=== PATIENT | female | born 1980 | race Caucasian/White ===

== ENCOUNTER 2017-01-31 20:28 | Emergency (ER) | payer MEDICAID ==
[~2017-01-31] VITALS: Ht 154.9 cm; Wt 94.0 kg
[~2017-01-31 20:28] MED LIST: ACET-141 PO; ALBU18HF INHALATION; AZIT250T94 PO; IBUP400T22 PO; LORA-441 PO; NO MEDS; PRED20TA PO; PRENATALS; PROM6.25 PO
[2017-01-31 20:37] VITALS: Ht 154.9 cm; Wt 94.0 kg
--- NOTE | 2017-01-31 21:33 | RADRPT ---
PROCEDURE: XR Chest AP portable CLINICAL INDICATION: Cough TECHNIQUE: An AP portable radiograph of the chest was submitted. COMPARISON: 01/06/2016 FINDINGS: Support Hardware: None Cardiovascular: The cardiovascular silhouette appears unremarkable. Lung Tirado: The lung tirado appear clear with no nodule, alveolar infiltrate, or interstitial promi nence evident. Pleural Spaces: No pneumothorax or pleural effusion is identified. Osseous Structures: The osseous structures appear intact. Soft Tissues: The soft tissues appear generous. IMPRESSION: Stable and unremarkable portable chest. Physician Yaakov Date Time Electronically viewed and signed by Monica Easley Physician on 01/31/2017 21:33 RH/
[2017-01-31] MEDS ORDERED: ALBU8.5H3 INH (22:03)
[2017-01-31] MEDS ORDERED: AZIT250T94 PO (22:03)
[2017-01-31] MEDS ORDERED: BENZ100C70 PO (22:03)
[2017-01-31 22:12] VITALS: PULSE 80; RESP 24; TEMP 98.7
--- NOTE | 2017-01-31 22:30 | ERD ---
ER Documentation Chief Complaint Date/Time DATE: 01/31/17 TIME: 22:26 Chief Complaint cough congestion, fever x 3 weeks HPI 36-year-old female patient with no significant past medical history presents to the ED complaining of cough, congestion that started 3 weeks ago with fever that started 2 days ago. Patient reports that her cough is dry. Reports that she has tried taking [id number] Robitussin which has not relieved her symptoms. Denies any sick contacts. Patient reports that she has had a history of bronchitis. Denies any smoking. Denies any abdominal pain, nausea, vomiting, chest pain, shortness of breath, diarrhea. ROS All systems reviewed and are negative except as per history of present illness. Medications Home Meds Active Scripts Albuterol Sulfate* (Proair HFA*) 8.5 Gm Hfa.aer.ad, 2 PUFF INH Q4, #1 INHALER Prov:SELENA MOONEY PA-C 01/31/17 Benzonatate* (Tessalon Perle*) 100 Mg Capsule, 100 MG PO Q8H Y for COUGH, #20 CAP Prov:SELENA MOONEY PA-C 01/31/17 Azithromycin* (Zithromax*) 250 Mg Tablet, 250 MG PO .ZPACK DIRECTED, #6 TAB TAKE 500 MG (2 TABS) THE FIRST DAY THEN 250 MG (1 TAB) DAYS 2-5 Prov:SELENA MOONEY PA-C 01/31/17 Lorazepam* (Ativan*) 0.5 Mg Tablet, 0.5 MG PO Q8, #10 TAB Prov:TY RAMIREZ 01/07/16 Azithromycin* (Zithromax*) 250 Mg Tablet, 250 MG PO .ZPACK DIRECTED, #6 TAB TAKE 500 MG (2 TABS) THE FIRST DAY THEN 250 MG (1 TAB) DAYS 2-5 Prov:YAHIR TSAI PA-C 08/14/15 Prednisone* (Prednisone*) 20 Mg Tab, 40 MG PO DAILY for 4 Days, TAB Prov:YAHIR TSAI PA-C 08/14/15 Promethazine w/Codeine* (Phenergan w/Codeine* Syrup) 5 Ml Syrup, 5 ML PO Q4H Y for COUGH, #100 ML Prov:YAHIR TSAI PA-C 08/10/15 Ibuprofen* (Motrin*) 400 Mg Tab, 400 MG PO Q6H Y for PAIN AND OR ELEVATED TEMP, #30 TAB Prov:YAHIR TSAI PA-C 08/10/15 Acetaminophen* (Acetaminophen*) 500 MG Extra Strength Tablet, 500 MG PO Q4H Y for PAIN AND OR ELEVATED TEMP, #30 TAB Prov:YAHIR TSAI PA-C 08/10/15 Albuterol Sulfate* (Ventolin HFA*) 18 Gm Hfa.aer.ad, 2 PUFF INHALATION Q4H, #1 INHALER Prov:YAHIR TSAI PA-C 08/10/15 Reported Medications [Prenatals] No Conflict Check 05/18/11 [No Meds] No Conflict Check 11/03/10 Allergies Allergies: Coded Allergies: No Known Allergy (Verified , 01/31/17) PMhx/Soc History of Surgery: Yes (c section) Anesthesia Reaction: No Hx Neurological Disorder: No Hx Respiratory Disorders: No Hx Cardiac Disorders: No Hx Psychiatric Problems: No Hx Miscellaneous Medical Probl: No Hx Alcohol Use: No Hx Substance Use: No Hx Tobacco Use: No Smoking Status: Never smoker Physical Exam Vitals Vital Signs Date Time Temp Pulse Resp B/P Pulse Ox O2 Delivery O2 Flow Rate FiO2 01/31/17 22:12 98.7 80 24 98 Room Air 01/31/17 20:37 97.1 64 24 122/78 98 Physical Exam Const: [id number]-[id number], well-nourished. In no acute distress. Head: Atraumatic, normocephalic Eyes: Normal Conjunctiva without injection. No purulent discharge. PERRL. EOMI ENT: Normal external ear. Ear canal without erythema. Tympanic membrane pearly cornell without effusion or bulging. Nasal canal clear with normal turbinates. Moist oropharynx without tonsillar exudates. Non-erythematous pharynx. Uvula midline. No drooling. No trismus. Neck: Full range of motion. No meningismus. No cervical lymphadenopathy. Resp: Clear to auscultation bilaterally. No wheezing, rhonchi, rales, or crackles. No accessory muscle use. No retractions. Cardio: Regular rate and rhythm. No murmurs, rubs or gallops. Abd: Soft, non tender, non distended. Normal bowel sounds. No palpable masses. No rebound tenderness. No guarding. Skin: No petechiae or rashes Back: No midline tenderness. No CVA tenderness. Ext: No cyanosis, or edema. Neur: Awake and alert. Psych: Normal Mood and Affect Procedures/MDM This is a 36-year-old female patient with no significant past medical history presents to the ED complaining of cough, congestion, fever. Patient is afebrile and nontoxic-appearing. Patient has normal vital signs. Since patient symptoms have been going on for the past 3 weeks, a chest x-ray will be ordered to further evaluate patient. Chest x-ray shows no pneumothorax, pleural effusion, pneumonia. Patient likely has bronchitis. Patient's physical exam include lungs which were clear to auscultation and a normal pulse oximetry. There is a low suspicion for pneumonia, pneumothorax, mononucleosis, pulmonary embolism, epiglottitis, otitis media, otitis externa, viral/strep pharyngitis, sinusitis, peritonsillar abscess, mastoiditis, retropharyngeal abscess, meningitis, sepsis, acute abdomen or other emergent conditions. Fluids , rest, and symptomatic treatment are recommended for the management of patient' s symptoms. Discharge medications: Tessalon Perles, Zithromax, ProAir Patient was instructed to return to the ED for any new or worsening symptoms. They should otherwise follow up with the primary care provider within 1-2 days. The patient's questions were answered at the time of discharge. Patient understood and agreed with discharge management. Departure Diagnosis: Primary Impression: Bronchitis Condition: Stable Patient Instructions: Bronchitis, Antiobiotic Treatment (Adult) Referrals: [facility] YOU HAVE RECEIVED A MEDICAL SCREENING EXAM AND THE RESULTS INDICATE THAT YOU DO NOT HAVE A CONDITION THAT REQUIRES URGENT TREATMENT IN THE EMERGENCY DEPARTMENT. FURTHER EVALUATION AND TREATMENT OF YOUR CONDITION CAN WAIT UNTIL YOU ARE SEEN IN YOUR DOCTORS OFFICE WITHIN THE NEXT 1-2 DAYS. IT IS YOUR RESPONSIBILITY TO MAKE AN APPOINTMENT FOR FOLOW-UP CARE. IF YOU HAVE A PRIMARY DOCTOR --you should call your primary doctor and schedule an appointment IF YOU DO NOT HAVE A PRIMARY DOCTOR YOU CAN CALL OUR PHYSICIAN REFERRAL HOTLINE AT IF YOU CAN NOT AFFORD TO SEE A PHYSICIAN YOU CAN CHOSE FROM THE FOLLOWING [facility] CLINICS [facility] [address] [facility] [address] [facility] [address] [facility] [address] [facility] [address] [facility]. [facility] [address] [facility]. [facility] YOU HAVE RECEIVED A MEDICAL SCREENING EXAM AND THE RESULTS INDICATE THAT YOU DO NOT HAVE A CONDITION THAT REQUIRES URGENT TREATMENT IN THE EMERGENCY DEPARTMENT. FURTHER EVALUATION AND TREATMENT OF YOUR CONDITION CAN WAIT UNTIL YOU ARE SEEN IN YOUR DOCTORS OFFICE WITHIN THE NEXT 1-2 DAYS. IT IS YOUR RESPONSIBILITY TO MAKE AN APPOINTMENT FOR FOLOW-UP CARE. IF YOU HAVE A PRIMARY DOCTOR --you should call your primary doctor and schedule and appointment IF YOU DO NOT HAVE A PRIMARY DOCTOR YOU CAN CALL OUR PHYSICIAN REFERRAL HOTLINE AT . IF YOU CAN NOT AFFORD TO SEE A PHYSICIAN YOU CAN CHOSE FROM THE FOLLOWING [facility] INSTITUTIONS: [facility] [address] [place] [address] [facility] [address] [place], [place] [id number] [place] [address] [address] [place] [address] [facility] URGENT CARE/SPECIALTIES Additional Instructions: Llame al doctor DHARA y brett eloina SAURABH PARA DENTRO DE 3 PHILLIPS.Dgale a la secretaria que nosotros le instruimos hacer esta saurabh.Avise o llame si arreaga condicin se empeora antes de la saurabh. Regresa aqui si peor o no mejor. SELENA MOONEY PA-C Jan 31, 2017 22:30
== END 2017-01-31 22:13 | disposition home or self-care (01) ==
LOC: FTE 20:28
DX: J20.9 Acute bronchitis, unspecified (principal)
CPT/HCPCS: 71010; Z7502; 99284

== ENCOUNTER 2017-07-01 15:06 | Emergency (ER) | END 2017-07-01 16:39 | disposition home or self-care (01) ==

== ENCOUNTER 2017-12-02 19:03 | Emergency (ER) | END 2017-12-02 21:56 | disposition home or self-care (01) ==

== ENCOUNTER 2018-04-29 08:51 | Emergency (ER) | END 2018-04-29 10:53 | disposition home or self-care (01) ==

== ENCOUNTER 2018-11-29 08:20 | Emergency (ER) | payer MEDICAID ==
[~2018-11-29] VITALS: Wt 80.0 kg
[~2018-11-29 08:20] MED LIST changes: +ALBU8.5H8 INH; +AZIT250T PO; -AZIT250T94 PO; +BENZ-6 PO; +CYCL10TA7 PO; +IBUP-1561 PO; -IBUP400T22 PO; +MECL-77 PO; +NAPR-985 PO; +ONDA4TAB11 PO
[2018-11-29 08:21] VITALS: BP 127/86; PULSE 72; RESP 18
[2018-11-29] MEDS ORDERED: BENZ-6 PO (09:37)
[2018-11-29] MEDS ORDERED: PROM6.2515 PO (09:38)
--- NOTE | 2018-11-29 09:49 | ERD ---
ER Documentation Chief Complaint Chief Complaint cough x 1 mos HPI This is a 38-year-old Cymro-speaking female presents to the ED complaining of a nonproductive cough x1 month. Cough has been persistent and ongoing, therefore patient presented here for further evaluation. She saw her PCP about 2 weeks ago prescribed her loratadine and azithromycin which she has been taking with temporary relief of her symptoms. She denies any fevers, nausea, vomiting, chest pain, shortness of breath, wheezing, difficulty swallowing or any other symptoms. Her children have both been sick with similar symptoms. No other symptoms. ROS All systems reviewed and are negative except as per history of present illness. Medications Home Meds Active Scripts Promethazine Hcl* (Promethazine Hcl* Syrup) 6.25 Mg/5 Ml Syrup, 6.25 MG PO Q6H PRN for COUGH, #100 ML Prov:AUTUMN DOWNING PA-C 11/29/18 Benzonatate* (Tessalon Perle*) 100 Mg Capsule, 100 MG PO Q8H PRN for COUGH, #20 CAP Prov:AUTUMN DOWNING PA-C 11/29/18 Naproxen* (Naprosyn*) 500 Mg Tablet, 500 MG PO BID PRN for PAIN AND/OR INFLAMMATION, #30 TAB Prov:ANJELICA JASSO 04/29/18 Ondansetron (Zofran Odt) 4 Mg Tab.rapdis, 4 MG PO Q6, #20 Prov:ESPERANZA CABELLO PA-C 12/02/17 Meclizine Hcl* (Meclizine Hcl*) 25 Mg Tablet, 25 MG PO Q8H PRN for DIZZINESS, #30 TAB Prov:ESPERANZA CABELLO PA-C 12/02/17 Naproxen* (Naprosyn*) 500 Mg Tablet, 500 MG PO BID PRN for PAIN AND/OR INFLAMMA TION, #20 TAB Prov:STEPHANIE LEYVA PA-C 07/01/17 Cyclobenzaprine Hcl* (Cyclobenzaprine Hcl*) 10 Mg Tablet, 10 MG PO TID, #15 TAB Prov:STEPHANIE LEYVA PA-C 07/01/17 Albuterol Sulfate* (Proair HFA*) 8.5 Gm Hfa.aer.ad, 2 PUFF INH Q4, #1 INHALER Prov:SELENA MOONEY PA-C 01/31/17 Azithromycin* (Zithromax*) 250 Mg Tablet, 250 MG PO .ZPACK DIRECTED, #6 TAB TAKE 500 MG (2 TABS) THE FIRST DAY THEN 250 MG (1 TAB) DAYS 2-5 Prov:SELENA MOONEY PA-C 01/31/17 Lorazepam* (Ativan*) 0.5 Mg Tablet, 0.5 MG PO Q8, #10 TAB Prov:TY RAMIREZ 01/07/16 Azithromycin* (Zithromax*) 250 Mg Tablet, 250 MG PO .ZPACK DIRECTED, #6 TAB TAKE 500 MG (2 TABS) THE FIRST DAY THEN 250 MG (1 TAB) DAYS 2-5 Prov:YAHIR TSAI PA-C 08/14/15 Prednisone* (Prednisone*) 20 Mg Tab, 40 MG PO DAILY for 4 Days, TAB Prov:YAHIR TSAI PA-C 08/14/15 Promethazine w/Codeine* (Phenergan w/Codeine* Syrup) 5 Ml Syrup, 5 ML PO Q4H PRN for COUGH, #100 ML Prov:YAHIR TSAI PA-C 08/10/15 Ibuprofen* (Motrin*) 400 Mg Tab, 400 MG PO Q6H PRN for PAIN AND OR ELEVATED TEMP, #30 TAB Prov:YAHIR TSAI PA-C 08/10/15 Acetaminophen* (Acetaminophen*) 500 MG Extra Strength Tablet, 500 MG PO Q4H PRN for PAIN AND OR ELEVATED TEMP, #30 TAB Prov:YAHIR TSAI PA-C 08/10/15 Albuterol Sulfate* (Ventolin HFA*) 18 Gm Hfa.aer.ad, 2 PUFF INHALATION Q4H, #1 INHALER Prov:YAHIR TSAI PA-C 08/10/15 Reported Medications [Prenatals] No Conflict Check 05/18/11 [No Meds] No Conflict Check 11/03/10 Allergies Allergies: Coded Allergies: No Known Allergy (Verified , 11/29/18) PMhx/Soc Medical and Surgical Hx: pt denies Medical Hx History of Surgery: Yes (c section) Anesthesia Reaction: No Hx Neurological Disorder: No Hx Respiratory Disorders: No Hx Cardiac Disorders: No Hx Psychiatric Problems: No Hx Miscellaneous Medical Probl: No Hx Alcohol Use: No Hx Substance Use: No Hx Tobacco Use: No Physical Exam Vitals Vital Signs Date Temp Pulse Resp B/P (MAP) Pulse Ox O2 O2 Flow FiO2 Time Delivery Rate 11/29/18 98.1 72 18 127/86 99 08:21 (100) Physical Exam Const: No acute distress. + Dry cough on exam Head: Atraumatic Eyes: Normal Conjunctiva ENT: Normal External Ears, Nose and Mouth. Neck: Full range of motion. No meningismus. Resp: Clear to auscultation bilaterally Cardio: Regular rate and rhythm, no murmurs Ext: No cyanosis, or edema Neur: Awake and alert Psych: Normal Mood and Affect Procedures/MDM LABS & DIAGNOSTIC IMAGING: PROCEDURE: XR Chest. CLINICAL INDICATION: Cough TECHNIQUE: PA and lateral views of the chest were obtained. COMPARISON: DX CHEST 08/04/2017; CHEST 01/31/2017; CR CHEST 01/06/2016 FINDINGS: No focal airspace opacification, pleural effusion or pneumothorax is seen. The cardiomediastinal silhouette is within normal limits for size. The osseous structures are unremarkable. IMPRESSION: Unremarkable chest x-ray series. MEDICAL DECISION MAKIN-year-old otherwise healthy female presents with persistent cough. She is well-hydrated, nontoxic-appearing, and afebrile. No hypoxia. No respiratory distress. Lung sounds are clear on exam. Given duration of symptoms, chest x- ray was obtained and negative for pneumonia or any acute pulmonary process. Patient is already taking azithromycin although I believe symptoms are likely viral etiology. Given Rx for promethazine and benzonatate. Patient is otherwise stable and can be discharged home with close outpatient follow-up. Strict return precautions were discussed. PRESCRIPTIONS: Benzonatate, promethazine SPECIALIST FOLLOW UP RECOMMENDED: None Patient has been advised to follow up with primary care in 1-2 days. Departure Diagnosis: Primary Impression: Cough Condition: Stable Patient Instructions: Uri, Viral, No Abx (Adult) Referrals: COMMUNITY CLINICS YOU HAVE RECEIVED A MEDICAL SCREENING EXAM AND THE RESULTS INDICATE THAT YOU DO NOT HAVE A CONDITION THAT REQUIRES URGENT TREATMENT IN THE EMERGENCY DEPARTMENT. FURTHER EVALUATION AND TREATMENT OF YOUR CONDITION CAN WAIT UNTIL YOU ARE SEEN IN YOUR DOCTORS OFFICE WITHIN THE NEXT 1-2 DAYS. IT IS YOUR RESPONSIBILITY TO MAKE AN APPOINTMENT FOR FOLOW-UP CARE. IF YOU HAVE A PRIMARY DOCTOR --you should call your primary doctor and schedule an appointment IF YOU DO NOT HAVE A PRIMARY DOCTOR YOU CAN CALL OUR PHYSICIAN REFERRAL HOTLINE AT IF YOU CAN NOT AFFORD TO SEE A PHYSICIAN YOU CAN CHOSE FROM THE FOLLOWING [facility] [address] [facility] [address] [facility] [address] [facility] [address] [facility] [address] [facility]. [facility] [address] [facility]. [facility] YOU HAVE RECEIVED A MEDICAL SCREENING EXAM AND THE RESULTS INDICATE THAT YOU DO NOT HAVE A CONDITION THAT REQUIRES URGENT TREATMENT IN THE EMERGENCY DEPARTMENT. FURTHER EVALUATION AND TREATMENT OF YOUR CONDITION CAN WAIT UNTIL YOU ARE SEEN IN YOUR DOCTORS OFFICE WITHIN THE NEXT 1-2 DAYS. IT IS YOUR RESPONSIBILITY TO MAKE AN APPOINTMENT FOR FOLOW-UP CARE. IF YOU HAVE A PRIMARY DOCTOR --you should call your primary doctor and schedule and appointment IF YOU DO NOT HAVE A PRIMARY DOCTOR YOU CAN CALL OUR PHYSICIAN REFERRAL HOTLINE AT . IF YOU CAN NOT AFFORD TO SEE A PHYSICIAN YOU CAN CHOSE FROM THE FOLLOWING [facility] INSTITUTIONS: [facility] [address] [place] [address] [facility] [address] [place] [address] [facility] + [facility] [address] [place] [address] [facility] URGENT CARE/SPECIALTIES Additional Instructions: Paciente aconseja volver a Departamento de urgencias inmediatamente para sntomas nuevos o que empeoran . Paciente aconseja posteriores con el PCP en 1-2 villagran. Si el paciente no tiene ninguna de atencin primaria pueden seguir con [facility] [address] [place] [address] o [facility] + [address] [address] AUTUMN DOWNING PA-C Nov 29, 2018 09:48
== END 2018-11-29 09:42 | disposition home or self-care (01) ==
LOC: FTE 08:20
DX: R05 Cough (principal)
CPT/HCPCS: 71046; Z7502

== ENCOUNTER 2019-02-18 16:59 | Emergency (ER) | payer MEDICAID ==
[~2019-02-18] VITALS: Ht 154.9 cm; Wt 96.9 kg
[~2019-02-18 16:59] MED LIST changes: +IBUP-1542 PO; +PROM6.2515 PO
[2019-02-18 17:19] VITALS: Ht 154.9 cm; Wt 96.9 kg
[2019-02-18 17:56] VITALS: BP 172/95; PULSE 71; RESP 18
== END 2019-02-18 17:59 | disposition home or self-care (01) ==
LOC: E/R 16:59
DX: S60.222A Contusion of left hand, initial encounter (principal); W20.8XXA Other cause of strike by thrown, projected or falling object, initial encounter; Y92.9 Unspecified place or not applicable
CPT/HCPCS: 73130; Z7502